=== PATIENT | female | born 1990 | race Two or more races ===

== ENCOUNTER 2021-07-10 12:47 | Emergency (ER) | payer MEDICAID ==
[~2021-07-10] VITALS: Ht 160 cm; Wt 80.7 kg
[2021-07-10 16:49] VITALS: BP 123/80
== END 2021-07-10 17:05 | disposition home or self-care (01) ==
LOC: ER 12:47
DX: S93.402A Sprain of unspecified ligament of left ankle, initial encounter (principal); X58.XXXA Exposure to other specified factors, initial encounter; Y93.89 Activity, other specified; Y92.89 Other specified places as the place of occurrence of the external cause; Y99.8 Other external cause status
CPT/HCPCS: 73610

== ENCOUNTER 2022-10-24 13:03 | Emergency (ER) | payer MEDICAID, OTHER ==
[~2022-10-24] VITALS: Ht 160 cm; Wt 82.0 kg
[~2022-10-24 13:03] MED LIST: ACET-1079 PO; BENZ100C19 PO; IBUP600T28 PO; OSEL75CA5 PO
[2022-10-24] MEDS: KETOROLAC TROMETH 60MG/2ML VIAL IM ONE (15:53)
[2022-10-24] MEDS ORDERED: IBUP800T26 PO (16:02)
[2022-10-24] MEDS ORDERED: HYDR-4902 PO (16:02)
[2022-10-24 16:56] VITALS: BP 108/61
== END 2022-10-24 16:59 | disposition home or self-care (01) ==
LOC: ER 13:03
DX: S16.1XXA Strain of muscle, fascia and tendon at neck level, initial encounter (principal); S39.012A Strain of muscle, fascia and tendon of lower back, initial encounter; E66.01 Morbid (severe) obesity due to excess calories; Z68.32 Body mass index [BMI] 32.0-32.9, adult; V89.2XXA Person injured in unspecified motor-vehicle accident, traffic, initial encounter; Y93.89 Activity, other specified; Y92.89 Other specified places as the place of occurrence of the external cause; Y99.8 Other external cause status
CPT/HCPCS: 72040; 72070; 72100; 96372; 99284; J1885

== ENCOUNTER 2024-11-21 10:35 | Emergency (ER) | payer MEDICAID, OTHER ==
[~2024-11-21] VITALS: Ht 160 cm; Wt 75.3 kg
[~2024-11-21 10:35] MED LIST changes: +HYDR-4902 PO; +IBUP-1455 PO; +IBUP1TAB5 PO; -IBUP600T28 PO
--- NOTE | 2024-11-21 10:57 | ED.PDOC ---
AP[facility] MAN HPI Comments 34 y/o F, with PMHx of hypothyroidism presents to the ED for CC of abnormal vaginal bleeding. Patient states, she is currently [id number] LMP 09/29/24; and has been experiencing spontaneous vaginal bleeding as of this morning (11/21/24). Patient relays, associated symptoms of suprapubic abdominal pain with slight cramping. Patient reports, having a previous miscarriage and symptoms to be similar. Patient denies dizziness, fatigue, nausea, vomiting, or fever. No other symptoms or modifying factors present at this time. Time Seen by MD: 10:50 Reviewed Notes: Nurses Notes, Medications, Allergies Allergies: Coded Allergies: NO KNOWN ALLERGIES (Unverified , 07/10/21) Home Meds Active Scripts Hydrocodone-Acetaminophen (Hydrocodone Bitartrate/AC 5-325 mg) 1 Tab Tab, 1 TAB PO Q6HP PRN, #15 TAB Prov:BERNARDO DA SILVA [facility] 10/24/22 Ibuprofen Micronized (Ibuprofen) 800 Mg Tab, 800 MG PO Q8HP PRN, #30 TAB Prov:BERNARDO DA SILVA [facility] 10/24/22 Benzonatate (Tessalon Perles) 100 Mg Cap, 1 CAP PO TID for 5 Days, #15 CAP Prov:BERNARDO DA SILVA [facility] 04/28/22 Ibuprofen Micronized (Ibuprofen) 600 Mg Tab, 600 MG PO QIDP for 7 Days, #28 TAB Prov:BERNARDO DA SILVA [facility] 04/28/22 Acetaminophen (Tylenol) 325 Mg Tb, 650 MG PO QIDP for 7 Days, #56 TAB Prov:BERNARDO DA SILVA [facility] 04/28/22 Oseltamivir Phosphate (Tamiflu) 75 Mg Cap, 1 CAP PO BID for 5 Days, #10 CAP Prov:BERNARDO DA SILVA [facility] 04/28/22 Information Source: Patient Mode of Arrival: Ambulatory Timing: Hours Prehospital treatment: None Severity: Moderate Vaginal Discharge: None Vaginal Lesions: None Bleeding Quality: Bright Red Vaginal Mass: None Onset Of Mass/Bleeding: Spontaneous Sexual Activity: Last Consensual Fenton: Unknown Control: None History of: Current Blood Type: Unknown Symptoms of Possible : None Associated Signs and Symptoms: Vaginal Bleeding, Abdominal Pain Past Medical History PAST MEDICAL HISTORY: Thyroid (hypo) Surgical History: Denies all surgeries [employer] History: No Pertinent [employer] History Family History Family History: Unknown Social History Smoker: Non-Smoker Alcohol: Denies ETOH Use Drugs: Denies Drug Use Lives In: Home Constitutional: denies: chills, diaphoresis, fatigue, fever, malaise, sweats, weakness, others EENTM: denies: blurred vision, double vision, ear bleeding, ear discharge, ear drainage, ear pain, ear ringing, eye pain, eye redness, hearing loss, mouth pain, mouth swelling, nasal discharge, nose bleeding, nose congestion, nose pain, photophobia, tearing, throat pain, throat swelling, voice changes, others Respiratory: denies: cough, hemoptysis, orthopnea, SOB at rest, shortness of breath, SOB with excertion, stridor, wheezing, others Cardiovascular: denies: chest pain, dizzy spells, diaphoresis, Dyspnea on exertion, edema, irregular heart beat, left arm pain, lightheadedness, palpitations, PND, syncope, others Gastrointestinal: reports: abdominal pain; denies: abdomen distended, blood streaked bowels, constipated, diarrhea, dysphagia, difficulty swallowing, hematemesis, melena, nausea, poor appetite, poor fluid intake, rectal bleeding, rectal pain, vomiting, others Genitourinary: reports: abnormal vagina bleeding; denies: burning, dyspareunia, dysuria, flank pain, frequency, hematuria, incontinence, pain, , vagina discharge, urgency, others Neurological: denies: dizziness, fainting, headache, left sided numbness, left sided weakness, numbness, paresthesia, pre-existing deficit, right sided numbness, right sided weakness, seizure, speech problems, tingling, tremors, weakness, others Musculoskeletal: denies: back pain, gout, joint pain, joint swelling, muscle pain, muscle stiffness, neck pain, others Integumetry: denies: bruises, change in color, change in hair/nails, dryness, laceration, lesions, lumps, rash, wounds, others Allergic/Immunocompromised: denies: Difficulty Healing, Frequent Infections, Hives, Itching, others Hematologic/Lymphatic: denies: anemia, blood clots, easy bleeding, easy bruising, swollen glands, others Endocrine: denies: excessive hunger, excessive sweating, excessive thirst, excessive urination, flushing, intolerance to cold, intolerance to heat, unexplained weight gain, unexplained weight loss, others Psychiatric: denies: anxiety, bipolar disorder, depression, hopeless, panic disorder, schizophrenia, sleepless, suicidal, others All Other Systems: Reviewed and Negative Physical Exam General Appearance: No Apparent Distress HEENT: Normal ENT Inspection, Pharynx Normal, TMs Normal Neck: Full Range of Motion, Non-Tender, Normal, Normal Inspection Respiratory: Chest Non-Tender, Lungs Clear, No Accessory Muscle Use, No Respiratory Distress, Normal Breath Sounds Cardiovascular: No Edema, No JVD, No Murmur, No Gallop, Normal Peripheral Pulses, Regular Rate/Rhythm Breast Exam: Deferred Gastrointestinal: No Organomegaly, Non Tender, No Pulsatile Mass, Normal Bowel Sounds, Soft Genitalia: Deferred Pelvic: Deferred Rectal: Deferred Extremities: No calf tenderness, Normal capillary refill, Normal inspection, Normal range of motion, Non-tender, No pedal edema Musculoskeletal : Apperance: Normal Neurologic: Alert, fisher seal II-XII nml as Tested, No Motor Deficits, Normal Affect, Normal Mood, No Sensory Deficits Cerebellar Function: Normal Reflexes: Normal Skin: Dry, Normal Color, Warm Lymphatic: No Adenopathy Was a procedure done? Was a procedure done?: No Differential Diagnosis ([employer]) Vaginal Bleeding: - Complete, - Incomplete, - Threatened X-Ray, Labs, Meds, VS Vital Signs Date Time Temp Pulse Resp B/P (MAP) Pulse Ox O2 Delivery O2 Flow Rate FiO2 11/21/24 13:48 98.1 64 17 106/52 (70) 100 98.1 11/21/24 10:59 98.9 71 20 122/68 (86) 99 98.9 Lab Test 11/21/24 11:02 11/21/24 11:00 Range/Units Beta HCG, Quantitative 6112.4 H 1.5-4.2 mIU/mL Urine Color Colorless Yellow Urine Clarity Clear Clear Urine pH 6.5 5.0-9.0 Urine Specific [place] 1.005 1.001-1.035 Urine Protein Negative Negative Urine Ketones Negative Negative Urine Blood Negative Negative /uL Urine Nitrite Negative Negative Urine Bilirubin Negative Negative Urine Urobilinogen Normal Negative mg/dL Urine Leukocyte Esterase Negative Negative /uL Urine RBC 1 0 - 4 /hpf Urine Microscopic WBC 2 0-5 /HPF Urine Squamous Epithelial Cells Few <5 /hpf Urine Bacteria Few H None Seen /hpf Urine Glucose Normal Normal mg/dL OB US: IMPRESSION: Gestational sac and pole possibly representing early intrauterine . Close clinical and sonographic follow-up advised. Recommend correlation with beta HCG. OB TRANS VAG: IMPRESSION: Gestational sac and pole possibly representing early intrauterine . Close clinical and sonographic follow-up advised. Recommend cor relation with beta HCG. At this time the urine test is negative for infection The quantitative hCG is 6112 The patient is being discharged The patient will follow up with the primary care doctor The patient will return to the emergency department's condition worsens. Images Reviewed?: Images reviewed and evaluated by me Time of 1ST Reevaluation: 11:20 Reevaluation 1ST: Unchanged Patient Education/Counseling: Diagnosis, Treatment, Prognosis, Need For Follow Up Family Education/Counseling: No Family Present Departure 1 Departure Time of Disposition: 14:23 Impression: Primary Impression: Early stage of Disposition: 01 HOME / SELF CARE / HOMELESS Condition: Fair Discharged With: Self Critical Care Note Critical Care Time?: No Stability Stability form required: No Heart Score Heart Score: Heart Score Response (Comments) Value History N/A 0 EKG N/A 0 Age N/A 0 Risk Factors N/A 0 Troponin N/A 0 Total 0 I personally scribed for BRENNAN IBRAHIM MD ([email or web address]) on 11/21/24 at 10:57. Electronically submitted by Mallory Otero ([employer]). I personally scribed for BRENNAN IBRAHIM MD ([email or web address]) on 11/21/24 at 13:45. Electronically submitted by Mallory Otero ([employer]). I personally scribed for BRENNAN IBRAHIM MD ([email or web address]) on 11/21/24 at 13:46. Electronically submitted by Mallory Otero ([employer]). BRENNAN IBRAHIM MD Nov 21, 2024 10:57
--- NOTE | 2024-11-21 13:35 | DVH ---
OB ULTRASOUND <14 WEEKS: HISTORY: pain TECHNIQUE: Multiple real-time grayscale sonographic images of the pelvis with duplex Doppler color f low, spectral and M-mode analysis. TRANSDUCERS: Transabdominal and transvaginal COMPARISON: None FINDINGS: The uterus measures 12.3 x 8.0 x 6.2 cm. Uterine fibroid is present measuring 2.9 cm. The cervix is not visualized. Right ovary measures 4.2 x 2.4 x 3.8 cm with normal Doppler color flow. Right ovarian corpus luteal c yst measures 1.4 cm. Left ovary measures 3.1 x 2.6 x 2.9 cm with normal Doppler color flow. Possible IUP with gestational sac measuring 0.8 cm. Yolk sac is present. IMPRESSION: Gestational sac and pole possibly representing early intrauterine . Close clinical and sonographic follow-up advised. Recommend correlation with beta HCG.
[2024-11-21 13:48] VITALS: TEMP 98.1
[2024-11-21 13:48] LABS: Urine Bacteria FEW /hpf (None Seen); Urine Blood Negative /uL (Negative); Urine Clarity Clear (Clear); Urine Color Colorless (Yellow); Urine Protein, UAD Negative (Negative); Urine Specific Gravity 1.005 (1.001-1.035); Urine Squamous Epithelial Cell FEW /hpf (<5); Urine Urobilinogen Normal (Negative); Urine WBC 2 /HPF (0-5); Urine pH 6.5 (5.0-9.0)
[2024-11-21 14:41] VITALS: BP 124/80; PULSE 72; RESP 14; O2SAT 100
== END 2024-11-21 14:40 | disposition home or self-care (01) ==
LOC: ER 10:35
DX: Z34.91 Encounter for supervision of normal pregnancy, unspecified, first trimester (principal); Z3A.08 8 weeks gestation of pregnancy; E03.9 Hypothyroidism, unspecified
CPT/HCPCS: 36415; 76801; 76817; 81001; 84702